=== PATIENT | male | born 1945 | race Two or more races ===

== ENCOUNTER 2019-03-01 16:07 | Emergency (ER) | payer MEDICARE ==
[~2019-03-01] VITALS: Ht 177.8 cm; Wt 61.2 kg
[~2019-03-01 16:07] MED LIST: AMLO1CAP6 PO; METO25TA4 PO
[2019-03-01 16:24] VITALS: BP 129/63
--- NOTE | 2019-03-01 16:25 | NUR ---
ARRIVAL PATIENT ARRIVED TO ED3 AMBULATORY WITH FAMILY, C/O OF HEAD INJURY TODAY, PATIENT STATES HE WAS HELPING HIS NEPHEWS WITH PLUMMING WHEN THE PIPE SLIPPED HITTING HIM IN THE HEAD,APPROX 3CM LACERATION NOTED TO RIGHT SIDE OF FOREHEAD, NO BLEEDING NOTED, PATIENT DENIES LOC, WOUND CLEANED WITH APPROX 100CC OF NORMAL SALINE, DOCTOR JAUN TO BEDSIDE.
--- NOTE | 2019-03-01 16:29 | ER.PDOC ---
General Chief Complaint: Head Injury Stated Complaint: HEAD LACERATION TRAVEL OUT OF US: No Time seen by MD: 16:15 Source: patient Exam Limitations: no limitations History of Present Illness Initial Comments patient states that he was helping his family work on an well and the cap on the well hit him in the head, no loc, no headache, he has a laceration on his forehead, no other injury or complaint, no neck pain, pt not on blood thinners, no vomiting or headache, he does have a contusion on his r arm but it is not painful and he moves it without pain. Timing/Duration: 1 hour Severity: mild Allergies: Coded Allergies: No Known Allergies (Unverified , 08/05/14) Home Meds Reported Medications Metoprolol Tartrate 25MG (LOPRESSER 25MG) 25 Mg Tablet, 25 MG PO BID for HYPERTENSION, #60 TAB 08/07/14 Amlodipine Besylate/Benazepril (LOTREL 5-20 MG CAPSULE) 1 Each Capsule, 1 EACH PO DAILY, CAPSULE 08/06/14 Past Medical History Medical History: cardiac problems, other Surgical History: no surgical history Social History Smoking: cigarettes Alcohol Use: none Drug Use: none Review of Systems Constitutional: denies fever EENTM: denies eye pain, denies ear pain, denies nose pain Respiratory: denies cough, denies shortness of breath Cardiovascular: denies chest pain, denies palpitations, denies syncope Gastrointestinal: denies abdominal pain, denies nausea, denies vomiting Musculoskeletal: denies back pain, denies neck pain Psychiatric/Neurological: denies headache Physical Exam General Appearance: No Apparent Distress, WD/WN EENT: eyes nml inspection, nml ENT inspection, pharynx nml Neck: Non-Tender, Full Range of Motion Respiratory: chest non-tender, lungs clear, normal breath sounds CVS: reg rate & rhythm Gastrointestinal: Normal Bowel Sounds Rectal: Normal Exam Back: Normal Inspection Extremities: Normal Range of Motion Neurologic/Psychiatric: internal review and audit compliance II-XII NML as Tested, No Motor/Sensory Deficits Skin: Normal Color Comments laceration on the ant right forehead approx 1 inch in length, no fb, clean no contamination, neuro vasc intact, no ocular injury no signs of intracranial injury, tms clear no raccoon eyes or auricular ecchymosis, no bony step off. Results/Orders Results/Orders Orders - ARACELIS ZAMORANO MD, Pertuss(Acell),Tet Vac (Boostrix (03/01/19 17:00) DiphMaicol person(Acell),Tet Vac (Boostrix (03/01/19 16:37) Vital Signs Date Time Temp Pulse Resp B/P (MAP) Pulse Ox O2 Delivery O2 Flow Rate FiO2 03/01/19 16:45 97.9 76 18 96 Room Air 03/01/19 16:24 97.9 76 18 129/63 (85) 96 Room Air 97.9 03/01/19 16:24 18 03/01/19 16:22 97.9 76 18 97.9 03/01/19 16:22 97.9 76 18 96 Room Air 97.9 Administered Medications Medications (Trade) Dose Ordered Sig/Radha Route PRN Reason Start Time Stop Time Status Last Admin Dose Admin Diphtheria/ Tetanus/Acell Pertussis (Boostrix Tdap) 0.5 ml ONCE ONCE IM 03/01/19 17:00 03/01/19 17:00 DC 03/01/19 16:40 0.5 ML Progress Progress laceration repair with betadine prep no fb, applies dermabond with good approximation of borders no dressing applied Departure Time of Disposition: 16:27 Disposition: 01 HOME, SELF-CARE Impression: Primary Impression: Laceration Additional Impression: Head injury Condition: Stable Patient Instructions: Fingertip Laceration, Head Injury, Adult, [id number] Referrals: GUERA HARDING (PCP) PRIMARY CARE PROVIDER Additional Instructions: return for redness or discharge from site. Duration or Time Spent with Pa: ARACELIS BENAVIDEZ MD March 01, 2019 16:29
[2019-03-01] MEDS ORDERED: BOOSTRIX TDAP IM ONE ×2 (16:37→17:00)
--- NOTE | 2019-03-01 16:42 | NUR ---
DERMA DELGADO DOCTOR JAUN TO ROOM, DERMABOND PLACED,
[2019-03-01 16:45] VITALS: BP 129/63
== END 2019-03-01 16:51 | disposition home or self-care (01) ==
LOC: ER 16:07
DX: S01.81XA Laceration without foreign body of other part of head, initial encounter (principal); F17.210 Nicotine dependence, cigarettes, uncomplicated; Z79.899 Other long term (current) drug therapy; W22.8XXA Striking against or struck by other objects, initial encounter; Y93.89 Activity, other specified; Y92.89 Other specified places as the place of occurrence of the external cause; Y99.8 Other external cause status
CPT/HCPCS: 12011; 90471; 90715; 99283; 12001

== ENCOUNTER 2022-12-20 16:10 | Emergency (ER) | payer MEDICARE ==
[~2022-12-20] VITALS: Ht 180.3 cm; Wt 59.0 kg
--- NOTE | 2022-12-20 16:17 | PCM.EKG ---
[facility] Test Date: 2022-12-20 Test Time: 16:09:42 Pat Name: GOPI WHEELER Department: Patient ID: [facility]-[id number] Room: Gender: M Engineering Equipment Operator: DEEDEE : 1945 Requested By: HIMA CASTANEDA Order Number: [id number] Reading MD: Justyn Castaneda Measurements Intervals [place] Rate: 71 P: 63 WV: 129 QRS: 76 QRSD: 99 T: 64 QT: 407 QTc: 443 Interpretive Statements Sinus rhythm Borderline low voltage, extremity leads No previous ECG available for comparison Electronically Signed On 12-21-2022 11:00:46 OVEREDGE SEWER by Justyn Castaneda Please click the below link to view image of tracing.
--- NOTE | 2022-12-20 16:22 | NUR ---
Arrival Pt arrived to ER 2 via EMS with c/o dizziness. Pt transfered self to stretcher, denies current chest pain, sob or dizziness. Dr notified of patients arrival
[2022-12-20 16:25] VITALS: BP 124/58
[2022-12-20 16:30] VITALS: BP 124/58
[2022-12-20 16:30] LABS: BASOPHIL % 0.5 % (0.0-0.2); EOSINOPHIL # 0.1 10^3/uL (0.0-0.2); LYMPHOCYTES # 2.04 10^3/uL1 (1.0-4.8); LYMPHOCYTES % 23.2 % (24.0-44.0); MEAN CORP HGB 30.7 pg (26-34); MONOCYTES # 0.7 10^3/uL (0.3-0.8); MONOCYTES % 8.2 % (5.0-12.0); NEUTROPHIL # 5.9 10^3/uL (1.8-7.7); NEUTROPHILS % 66.9 % (41.0-85.0); PLATELET COUNT 307 10^3/uL (150-400); RED CELL DISTRIBUTION WIDTH 14.6 % (11.5-14.5)
[2022-12-20 16:51] LABS: CARBON DIOXIDE 29.6 mmol/L (20.0-32)
--- NOTE | 2022-12-20 17:07 | DIREP ---
PROCEDURE:CHEST 1 VIEW COMPARISON:None. INDICATIONS:syncope FINDINGS: LUNGS/PLEURA:Mild hyperinflation, suggestive of COPD. No focal consolidation, pleural effusion, or pneumothorax. VASCULATURE:Normal. Unremarkable pulmonary vasculature. CARDIAC:Heart size is normal. Mild calcified plaque at the aortic knob. MEDIASTINUM:Normal. No visible mass or adenopathy. BONES:Degenerative changes involving the shoulders and thoracic spine. No acute abnormality. OTHER:Negative. CONCLUSION: 1. Findings suggestive of COPD. No focal airspace consolidation. 2. Heart size and pulmonary vasculature are normal. 3. Additional chronic findings, as above. Dictated by: Kulwinder Hodges MD on 12/20/2022 at 05:04 PM
[2022-12-20] MEDS ORDERED: NS 1000ML 1,000 ML ONE (17:28)
[2022-12-20] MEDS: NS 1000ML 1,000 ML STA (17:29)
[2022-12-20 18:50] LABS: CARBON DIOXIDE 28.5 mmol/L (20.0-32)
--- NOTE | 2022-12-20 19:00 | ER.PDOC ---
General Chief Complaint: Dizziness Stated Complaint: SYNCOPE Time seen by MD: 16:15 Source: patient, family, EMS Exam Limitations: no limitations History of Present Illness Initial Comments Patient is a 77-year-old male With a past medical history of COPD brought in by EMS After having a syncopal episode. EMS states the patient's vital signs of been mostly within normal limits in route. And blood glucose was within normal limits. Patient states that he felt really really hot inside the house and went outside he said when he went outside the window cooler hit him when he immediately fell over and passed out he lost consciousness for maybe 3 to 5 seconds regained consciousness and states he has felt fine ever since then does not know what makes symptoms better or worse and is currently symptom-free. Allergies: Coded Allergies: No Known Allergies (Unverified , 08/05/14) Home Meds Reported Medications Metoprolol Tartrate 25MG (LOPRESSER 25MG) 25 Mg Tablet, 25 MG PO BID for HYPERTENSION, #60 TAB 08/07/14 Amlodipine Besylate/Benazepril (LOTREL 5-20 MG CAPSULE) 1 Each Capsule, 1 EACH PO DAILY, CAPSULE 08/06/14 Past Medical History Medical History: high cholesterol, hypertension, vascular disease Surgical History: no surgical history Family History Significant Family History: no pertinent family hx Social History Smoking: less than 1 pack/day Alcohol Use: none Drug Use: none Reviewed Nursing Reviewed: Vital Signs, Abn. Noted, Nursing Assessment Review of Systems Constitutional: no symptoms reported EENTM: no symptoms reported Respiratory: no symptoms reported Cardiovascular: syncope Gastrointestinal: no symptoms reported Genitourinary: no symptoms reported Musculoskeletal: no symptoms reported Skin: no symptoms reported Psychiatric/Neurological: no symptoms reported Physical Exam General Appearance: No Apparent Distress, WD/WN HEENT: PERRL/EOMI, Normal ENT Inspection, TMs Normal, Pharynx Normal Neck: Non-Tender, Full Range of Motion, Supple, Normal Inspection Cardiovascular/Respiratory: Regular Rate, Rhythm, No M/R/G, Normal Peripheral Pulses, No JVD, Normal Breath Sounds, No Respiratory Distress Gastrointestinal: Normal Bowel Sounds, No Organomegaly, No Pulsatile Mass, Non Tender, Soft Extremities: Normal Range of Motion, Non-Tender, Normal Inspection, No Pedal Edema, No Calf Tenderness, Normal Capillary Refill Psychiatric: Alert, Oriented x 3 Cranial Nerves: Normal Hearing, Normal Speech, PERRL Coordination/Gait: Normal Finger to Nose, Normal Gait, Negative Romberg's Sign Motor/Sensory: No Motor Deficit, No Sensory Deficit, No Pronator Drift, Negative Babinski's Sign Skin: Normal Color, Warm/Dry Lymphatic: No Adenopathy Results/Orders Results/Orders Orders - HIMA GARCIA MD EKG (12/20/22 16:15) Xr Chest 1v (12/20/22 16:15) Cbc With Auto Diff (12/20/22 16:15) Comprehensive Metabolic Panel (12/20/22 16:15) PT (12/20/22 16:15) Partial Thromboplastin Time. (12/20/22 16:15) Saline Lock (12/20/22 16:15) Troponin I High Sensitivity (12/20/22 16:15) 0.9 % Sodium Chloride (Ns 1000ml) (12/20/22 17:27) Basic Metabolic Panel (12/20/22 18:13) Vital Signs Date Time Temp Pulse Resp B/P (MAP) Pulse Ox O2 Delivery O2 Flow Rate FiO2 12/20/22 16:30 97.8 60 18 12/20/22 16:30 97.8 60 18 97 Room Air* 0 21 12/20/22 16:25 97.8 60 18 97 Administered Medications Medications (Trade) Dose Ordered Sig/Radha Route PRN Reason Start Time Stop Time Status Last Admin Dose Admin Sodium Chloride 1,000 ml @ 0 mls/hr Q0M STAT IV 12/20/22 17:27 12/20/22 17:28 UNV 12/20/22 17:29 1,000 MLS/HR Laboratory Tests Test 12/20/22 16:24 12/20/22 18:26 White Blood Count 8.8 10^3/uL (4.5-11.0) Red Blood Count 3.94 10^6/uL (4.50-5.90) L Hemoglobin 12.1 g/dL (13.9-16.3) L Hematocrit 38.2 % (37.0-53.0) Mean Corpuscular Volume 97.0 fL (78-100) Mean Corpuscular Hemoglobin 30.7 pg (26-34) Mean Corpuscular Hemoglobin Concent 31.7 g/dL (33-36.5) L Red Cell Distribution Width 14.6 % (11.5-14.5) H Platelet Count 307 10^3/uL (150-400) Mean Platelet Volume 9.7 fL (7.8-11.0) Neutrophils (%) (Auto) 66.9 % (41.0-85.0) Lymphocytes (%) (Auto) 23.2 % (24.0-44.0) L Monocytes (%) (Auto) 8.2 % (5.0-12.0) Neutrophils # (Auto) 5.9 10^3/uL (1.8-7.7) Lymphocytes # (Auto) 2.04 10^3/uL1 (1.0-4.8) Monocytes # (Auto) 0.7 10^3/uL (0.3-0.8) Absolute Immature Granulocyte (auto 0.02 10^3 u/L (0-2) Absolute Eosinophils (auto) 0.1 10^3/uL (0.0-0.2) Immature Granulocytes % 0.20 % (0.00-0.50) Eosinophils % 1.0 % (0.0-5.0) Basophils % 0.5 % (0.0-0.2) H Basophils # 0.0 10^3/uL (0.0-0.1) Prothrombin Time 9.7 SEC (9.1-11.5) Prothrombin Time INR (Non-Therap) 0.9 Activated Partial Thromboplast Time 23.2 SEC (22.5-33.1) Sodium Level 139 mmol/L (132-145) 140 mmol/L (132-145) Potassium Level 4.6 mmol/L (3.6-5.2) 4.5 mmol/L (3.6-5.2) Chloride Level 102.0 mmol/L (96-109) 106.0 mmol/L (96-109) Carbon Dioxide Level 29.6 mmol/L (20.0-32) 28.5 mmol/L (20.0-32) Anion Gap 12.0 10.0 Blood Urea Nitrogen 23 mg/dL (7-18) H 22 mg/dL (7-18) H Creatinine 1.59 mg/dL (0.59-1.40) H 1.42 mg/dL (0.59-1.40) H Estimated GFR () 51.2 (>/=60) 58.3 (>/=60) Est GFR (CKD-EPI)(Non-Afr [place]) 42.3 (>/=60) 48.2 (>/=60) BUN/Creatinine Ratio 14.0 15.0 Glucose Level 108 mg/dL (70-110) 131 mg/dL (70-110) H Calcium Level 8.9 mg/dL (8.4-10.5) 8.4 mg/dL (8.4-10.5) Total Bilirubin 0.4 mg/dL (0.2-1.0) Aspartate Amino Transferase (AST) 11 U/L (0-35) Alanine Aminotransferase (ALT) 18 U/L (12-78) Alkaline Phosphatase 86 U/L (50-136) Troponin I High Sensitivity 6 ng/L (0-75) Total Protein 6.7 g/dL (6.4-8.2) Albumin 3.4 g/dL (3.4-5.0) Globulin 3.3 Albumin/Globulin Ratio 1.030 Progress Progress Patient has a history of COPD must take that in consideration all labs EKG imaging interpreted by me Will obtain labs EKG imaging continue to monitor. My interpretations of patient's EKG shows nothing acute does look like he has COPD radiology later agreed patient coagulation factors within normal limits looking at patient's chemistry looks like his kidney labs are elevated we will give patient a liter of fluid and recheck these. Patient's troponin within normal limits. Looking at patient's CBC everything within normal limits may be some mild anemia but nothing too significant. My interpretation of patient's EKG shows sinus rhythm at a rate of 71 no STEMI QTc of 443 you find more on the computer readout. After patient got a liter of fluid we repeated his chemistry which shows a creatinine that almost went back to complete normal.Thus we will discharge patient. He voiced understanding as well as his son of when to follow-up and when to return to the ER. ER DEPARTURE Departure Time of Disposition: 18:58 Disposition: 01 HOME / SELF CARE / HOMELESS Impression: Primary Impression: Syncope and collapse Additional Impression: Dehydration Condition: Improved Patient Instructions: Dehydration, Adult, Syncope Referrals: GUERA HARDING (PCP) PRIMARY CARE PROVIDER Additional Instructions: As discussed follow-up with your primary care provider within the next week. If you have any new persistent or worsening symptoms or concerns seek medical attention. Duration or Time Spent with Pa: 55 Justification of Admit/Observ Is this patient coming directl: No *Level of Care/Services Provid: ER Admit Criteria Met: NO Justification Content JUSTIFICATION FOR ADMISSION Instructions 1. Open link in [employer] Browser. [email or web address] 2. Copy and paste data needed to meet the Admit Criteria. 3. Modify and document the needful data to meet the Admit Criteria. Problem Qualifiers HIMA GARCIA MD Dec 20, 2022 19:00
== END 2022-12-20 19:16 | disposition home or self-care (01) ==
LOC: EDBD 16:10 → ER 16:10
DX: R55 Syncope and collapse (principal); E86.0 Dehydration; E78.00 Pure hypercholesterolemia, unspecified; I10 Essential (primary) hypertension; J44.9 Chronic obstructive pulmonary disease, unspecified; I99.9 Unspecified disorder of circulatory system
CPT/HCPCS: 99285; 96360; 71045; 80053; 85025; 36415; 84484; 85610; 85730; 93005; 80048; J7030

== ENCOUNTER → 2023-08-27 | Outpatient (CLI) | payer MEDICARE | END | disposition home or self-care (01) | LOC: RAD 14:01 | PROVIDERS: ATTEND Nurse Practitioner Family | DX: S83.241A Other tear of medial meniscus, current injury, right knee, initial encounter (principal); S83.281A Other tear of lateral meniscus, current injury, right knee, initial encounter; M17.11 Unilateral primary osteoarthritis, right knee; M25.461 Effusion, right knee; M25.861 Other specified joint disorders, right knee; X58.XXXA Exposure to other specified factors, initial encounter; Y93.89 Activity, other specified; Y92.89 Other specified places as the place of occurrence of the external cause; Y99.8 Other external cause status | CPT/HCPCS: 73560; 73721 ==